=== PATIENT | female | born 1995 | race Caucasian/White ===

== ENCOUNTER 2020-01-12 11:14 | Emergency (ER) | payer SELFPAY ==
[2020-01-12 11:19] VITALS: BMI 39.1
[2020-01-12 11:22] VITALS: BP 137/94; PULSE 66; RESP 16; TEMP 36.9; O2SAT 98
--- NOTE | 2020-01-12 11:24 | CTR_ITS ---
PROCEDURE INFORMATION: Exam: CT Head Without Contrast Exam date and time: 01/12/2020 11:46 AM Age: 24 years old Clinical indication: Patient HX: C/O dizziness - weakness - nausea x 2 weeks TECHNIQUE: Imaging protocol: Computed tomography of the head without contrast. Radiation optimization: All CT scans at this facility use at least one of these dose optimization techniques: automated exposure control; mA and/or kV adjustment per patient size (includes targeted exams where dose is matched to clinical indication); or iterative reconstruction. COMPARISON: No relevant prior studies available. RADIATION DOSE METRICS: Total DLP: 762.65 mGy-cm FINDINGS: Brain: Symmetric caliber of the cortical sulci. Normal swann-white matter differentiation. No acute cortical infarct, mass effect, or intracranial hemorrhage. Ventricles: Normal configuration of the ventricles. Bones/joints: No acute calvarial pathology. Sinuses: Opacification of a solitary left ethmoidal air cell. Mastoid air cells: No mastoid effusion. Soft tissues: Unremarkable soft tissues. CT/CT head wo con* [id number] IMPRESSION: No acute intracranial pathology. Radiation Dose CTDIVOL = (mGy): DLP = 762.65 (mGy-cm)
--- NOTE | 2020-01-12 11:26 | ED_ITS ---
HPI - Dizziness General: Chief Complaint: Dizziness Stated Complaint: dizzy/weak Time Seen by Provider: 01/12/20 11:20 History of Present Illness: HPI Narrative: Patient states that she has felt dizzy for the past 2 weeks. Exertion makes this worse. MD elicited complaint: dizziness and vertigo Timing: intermittent Severity: severe Description: room spinning , lightheadedness, off-balance and difficulty walking Review of Systems General: Reports: 10 or more systems reviewed and unremarkable except in HPI and below PFSH ED PFSH: Social History Smoking and tobacco status: never smoked Female Reproductive History: Date of last menstrual period: 01/03/20 Physical Exam Const: COMMON NORMALS: no acute distress, patient oriented x3, alert and well nourished HENMT: COMMON NORMALS: normocephalic HEAD & SCALP: normocephalic Neck/C-Spine: COMMON NORMALS: full ROM, no lymphadenopathy, supple, no meningeal signs, no JVD and Thyroid normal THYROID: Thyroid normal Resp: COMMON NORMALS: normal respiratory effort, No retractions, No use of accessory muscles and clear to auscultation bilaterally AUSCULTATION: clear to auscultation bilaterally Cardio: COMMON NORMALS: no JVD, regular rate and regular rhythm JUGULAR VENOUS DISTENTION: no JVD RATE: regular rate RHYTHM: regular rhythm HEART SOUNDS: no murmurs Neuro: COMMON NORMALS: patient oriented x3 SENSORIUM/ORIENTATION: Yes alert MENINGEAL SIGNS: Yes no meningeal signs Skin: COMMON NORMALS: no rashes or lesions noted, turgor normal, no jaundice, no petechiae and no mottling GENERAL SKIN EXAM: no rashes or lesions noted and turgor normal Course Vital Signs: Vital signs: Vital Signs Temperature 98.4 F 01/12/20 11:22 Pulse Rate 66 01/12/20 11:22 Respiratory Rate 16 01/12/20 11:22 Blood Pressure 137/94 01/12/20 11:22 Pulse Oximetry 98 01/12/20 11:22 MDM - Dizziness Lab Data: Labs: Lab Results 01/12/20 01/12/20 01/12/20 Range/Units 11:45 11:57 11:57 WBC 12.4 H (4.0-10.0) 10^3/ uL RBC 4.57 (4.1-5.3) 10^6/u L Hgb 12.4 (11.5-15.3) g/dL Hct 40.4 (37.0-47.0) % MCV 88.4 (81-99) fL MCH 27.1 L (28.0-34.0) pg MCHC 30.7 (30.0-36.0) g/dL RDW 13.2 (12.1-15.1) % Plt Count 376 (130-400) 10^3/c mm MPV 10.2 (7.4-10.4) fL Neut % (Auto) 63.0 % Lymph % (Auto) 27.8 % [place] % (Auto) 7.3 % Eos % (Auto) 1.3 % Baso % (Auto) 0.4 % Neut # (Auto) 7.8 H (1.8-7.7) 10^3/u L Lymph # (Auto) 3.4 (0.8-4.8) 10^3/u L [place] # (Auto) 0.9 (0.2-0.9) 10^3/u L Eos # (Auto) 0.2 (0.0-0.8) 10^3/u L Baso # (Auto) 0.1 (0.0-0.1) 10^3/u L Nucleated RBC % (a uto) 0 % Nucleated RBCs # 0.0 /100WBC Sodium 141 (136-145) mmol/L Potassium 4.5 (3.5-5.1) mmol/L Chloride 104 (98-107) mmol/L Carbon Dioxide 26 (22-29) mmol/L Anion Gap 15.5 (5-19) BUN 11 (6-20) mg/dL Creatinine 0.7 (0.5-0.9) mg/dL GFR Calculation 104.6 (90-130) mL/min Glucose 98 (65-115) mg/dL Calculated Osmolal ity 288 (285-295) mOsm/k g Calcium 9.1 (8.5-10.5) mg/dL Phosphorus 3.6 (2.5-4.5) mg/dL Magnesium 2.1 (1.7-2.3) mg/dL Total Bilirubin 0.2 (0.15-1.2) mg/dL AST 18 (0-32) U/L ALT 16 (0-33) U/L Alkaline Phosphata se 66 (35-105) IU/L Total Protein 7.3 (6.6-8.7) g/dL Albumin 4.3 (3.5-5.2) g/dL Globulin 3.0 (1.3-4.6) g/dL HCG, Qual (Negative) Urine Color Yellow (Yellow) Urine Appearance Clear (CLEAR) Urine pH 5 (5-7) Ur Specific Gravit y 1.005 (1.005-1.030) Urine Protein Neg (Negative) Urine Glucose (UA) Norm (Normal) Urine Ketones Negative (Negative) Urine Blood Neg (Negative) Urine Nitrate Negative (Negative) Urine Bilirubin Neg (NEGATIVE) Urine Urobilinogen Norm (Negative) mg/dL Ur Leukocyte [place] ase Negative (Negative) 01/12/20 Range/Units 11:57 WBC (4.0-10.0) 10^3/ uL RBC (4.1-5.3) 10^6/u L Hgb (11.5-15.3) g/dL Hct (37.0-47.0) % MCV (81-99) fL MCH (28.0-34.0) pg MCHC (30.0-36.0) g/dL RDW (12.1-15.1) % Plt Count (130-400) 10^3/c mm MPV (7.4-10.4) fL Neut % (Auto) % Lymph % (Auto) % [place] % (Auto) % Eos % (Auto) % Baso % (Auto) % Neut # (Auto) (1.8-7.7) 10^3/u L Lymph # (Auto) (0.8-4.8) 10^3/u L [place] # (Auto) (0.2-0.9) 10^3/u L Eos # (Auto) (0.0-0.8) 10^3/u L Baso # (Auto) (0.0-0.1) 10^3/u L Nucleated RBC % (a uto) % Nucleated RBCs # /100WBC Sodium (136-145) mmol/L Potassium (3.5-5.1) mmol/L Chloride (98-107) mmol/L Carbon Dioxide (22-29) mmol/L Anion Gap (5-19) BUN (6-20) mg/dL Creatinine (0.5-0.9) mg/dL GFR Calculation (90-130) mL/min Glucose (65-115) mg/dL Calculated Osmolal ity (285-295) mOsm/k g Calcium (8.5-10.5) mg/dL Phosphorus (2.5-4.5) mg/dL Magnesium (1.7-2.3) mg/dL Total Bilirubin (0.15-1.2) mg/dL AST (0-32) U/L ALT (0-33) U/L Alkaline Phosphata se (35-105) IU/L Total Protein (6.6-8.7) g/dL Albumin (3.5-5.2) g/dL Globulin (1.3-4.6) g/dL HCG, Qual Negative (Negative) Urine Color (Yellow) Urine Appearance (CLEAR) Urine pH (5-7) Ur Specific Gravit y (1.005-1.030) Urine Protein (Negative) Urine Glucose (UA) (Normal) Urine Ketones (Negative) Urine Blood (Negative) Urine Nitrate (Negative) Urine Bilirubin (NEGATIVE) Urine Urobilinogen (Negative) mg/dL Ur Leukocyte [place] ase (Negative) Discharge Plan Discharge Patient Disposition: Home, Self-Care Clinical Impression: Dizziness Benign paroxysmal positional vertigo Qualifiers: Laterality: unspecified laterality Qualified Code(s): H81.10 - Benign paroxysmal vertigo, unspecified ear Condition: Stable Prescriptions: No Action No Known Home Medications RF: 0 Discharge Orders: Discharge Order (Routine); Ordered 01/12/20 Ordered By: Colt Patel Coding Level of Care Code ED Corporate Relations Manager for Chg Fwd Exam Detailed
[2020-01-12 12:03] LABS: Basophils # 0.1 10^3/uL (0.0-0.1); Basophils % 0.4 %; Eosinophils # 0.2 10^3/uL (0.0-0.8); Eosinophils % 1.3 %; Hematocrit 40.4 % (37.0-47.0); Hemoglobin 12.4 g/dL (11.5-15.3); Lymphocytes # 3.4 10^3/uL (0.8-4.8); Lymphocytes % 27.8 %; Mean Corpuscular HGB Conc 30.7 g/dL (30.0-36.0); Mean Corpuscular Hemoglobin 27.1 pg (28.0-34.0); Mean Corpuscular Volume 88.4 fL (81-99); Mean Platelet Volume 10.2 fL (7.4-10.4); Monocytes # 0.9 10^3/uL (0.2-0.9); Monocytes % 7.3 %; Neutrophils # 7.8 10^3/uL (1.8-7.7); Nucleated Red Blood Cells % 0 %; Platelet Count 376 10^3/cmm (130-400); Red Blood Count 4.57 10^6/uL (4.1-5.3); Red Cell Distribution Width 13.2 % (12.1-15.1); White Blood Count 12.4 10^3/uL (4.0-10.0)
[2020-01-12 12:07] LABS: Add Urine Microscopic? NO
[2020-01-12 12:10] LABS: Bilirubin Urine Neg (NEGATIVE); Blood Urine Neg (Negative); Glucose Urine UA Norm (Normal); Ketones Urine Negative (Negative); Leukocyte Esterase Urine Negative (Negative); Nitrate Urine Negative (Negative); Protein Urine Neg (Negative); Specific Gravity, Urine 1.005 (1.005-1.030); Urine Appearance Clear (CLEAR); Urine Color Yellow (Yellow); Urobilinogen Urine Norm (Negative); pH Urine 5 (5-7)
[2020-01-12 12:17] LABS: Alanine Aminotransferase 16 U/L (0-33); Albumin Level 4.3 g/dL (3.5-5.2); Alkaline Phosphatase 66 IU/L (35-105); Anion Gap 15.5 (5-19); Aspartate Amino Transferase 18 U/L (0-32); Blood Urea Nitrogen 11 mg/dL (6-20); Calcium 9.1 mg/dL (8.5-10.5); Carbon Dioxide 26 mmol/L (22-29); Chloride 104 mmol/L (98-107); Glomerular Filtration Rate 104.6 mL/min (90-130); Glucose 98 mg/dL (65-115); Magnesium 2.1 mg/dL (1.7-2.3); Osmolality Calculated 288 mOsm/kg (285-295); Phosphorus 3.6 mg/dL (2.5-4.5); Potassium 4.5 mmol/L (3.5-5.1); Sodium 141 mmol/L (136-145); Total Bilirubin 0.2 mg/dL (0.15-1.2); Total Protein 7.3 g/dL (6.6-8.7)
[2020-01-12] MEDS: sodium chloride 0.9% 1,000 ML 999 ML IV (12:33)
[2020-01-12 12:50] LABS: HCG, Serum Qual Negative (Negative)
[2020-01-12 13:03] VITALS: BP 125/88; PULSE 70; RESP 15; O2SAT 98
== END 2020-01-12 13:04 | disposition home or self-care (01) ==
PROVIDERS: Emergency Provider Family Medicine
DX: H81.10 Benign paroxysmal vertigo, unspecified ear (principal)
CPT/HCPCS: 12345; 36415; 70450; 80053; 81003; 83735; 84100; 84703; 85025; 96360; 99282; 99283; J7030

== ENCOUNTER → 2020-12-29 12:58 | Outpatient (BNVA) | payer MEDICAID, SELFPAY | PROVIDERS: Visit Provider Obstetrics & Gynecology | DX: Z34.03 Encounter for supervision of normal first pregnancy, third trimester (principal) | CPT/HCPCS: 81000; 82950; 85027; 86803 ==

== ENCOUNTER → 2021-01-12 14:08 | Outpatient (BNVA) | payer MEDICAID, SELFPAY | PROVIDERS: Visit Provider Obstetrics & Gynecology | DX: Z34.03 Encounter for supervision of normal first pregnancy, third trimester (principal) | CPT/HCPCS: 81000 ==

== ENCOUNTER → 2021-02-02 11:29 | Outpatient (BNVA) | payer MEDICAID, SELFPAY | PROVIDERS: Visit Provider Nurse Practitioner Women's Health | DX: O99.013 Anemia complicating pregnancy, third trimester (principal); D64.9 Anemia, unspecified; Z3A.00 Weeks of gestation of pregnancy not specified | CPT/HCPCS: 81000 ==

== ENCOUNTER → 2021-02-11 13:12 | Outpatient (BNVA) | payer MEDICAID, SELFPAY | PROVIDERS: Visit Provider Nurse Practitioner Women's Health | DX: O99.013 Anemia complicating pregnancy, third trimester; D64.9 Anemia, unspecified; Z3A.00 Weeks of gestation of pregnancy not specified | CPT/HCPCS: 81000; 85025; 87081 ==

== ENCOUNTER → 2021-02-16 09:12 | Outpatient (BNVA) | payer MEDICAID, SELFPAY | PROVIDERS: Visit Provider Obstetrics & Gynecology | DX: Z34.03 Encounter for supervision of normal first pregnancy, third trimester (principal) | CPT/HCPCS: 81000 ==

== ENCOUNTER 2021-02-19 14:35 | Outpatient (CLI) | payer MEDICAID, SELFPAY ==
[2021-02-19 14:49] VITALS: BP 112/59; PULSE 88; RESP 18
[2021-02-19 14:51] VITALS: TEMP 36.7
[2021-02-19 15:00] VITALS: RESP 16; TEMP 36.7
[2021-02-19 15:19] VITALS: BP 114/62; PULSE 75
[2021-02-19 15:47] LABS: Nitrazine Paper, PH Negative
[2021-02-19 15:49] VITALS: BP 101/58; PULSE 77
[2021-02-19 16:00] LABS: Actim Prom Negative
[2021-02-19 16:08] VITALS: BP 101/58; PULSE 77; RESP 18; TEMP 36.7
== END 2021-02-19 16:10 | disposition home or self-care (01) ==
LOC: OPOB 14:36 → OBGYN 14:38
PROVIDERS: Visit Provider Obstetrics & Gynecology
DX: O26.899 Other specified pregnancy related conditions, unspecified trimester (principal); Z3A.00 Weeks of gestation of pregnancy not specified; N89.8 Other specified noninflammatory disorders of vagina
CPT/HCPCS: 83986; 84112; 99211

== ENCOUNTER 2021-02-22 00:39 | Emergency (ER) | payer MEDICAID, SELFPAY ==
[2021-02-22 01:05] VITALS: BP 110/69; PULSE 74; RESP 16; TEMP 36.8; O2SAT 98; BMI 38.7
--- NOTE | 2021-02-22 01:49 | W.ED.SKABFB ---
HPI - Skin/Abscess/Foreign Bdy General: Chief complaint: Skin/Abscess/Foreign Body Stated complaint: Spider Bite Time Seen by Provider: 02/22/21 01:18 Source: patient Mode of arrival: ambulatory Limitations: no limitations History of Present Illness: HPI narrative: Patient is a 25-year-old female at approximately 38 weeks here for a red lesion that she noticed to her right forearm when she awoke this morning. She states lesion is pruritic. She did not feel any bite or sting. She has no history of MRSA. She has not noticed any red streaking up her arm. No fevers, chills, body aches. No drainage from the wound. MD complaint: insect bite/sting Onset (ago): hour(s) Tetanus up to date: yes Location: RUE Severity: mild Quality: pruritic Pain Consistency: constant Relieving factors: none Exacerbating factors: none Context: none Associated symptoms: Reports no associated symptoms; Deny chills or fever(s) Treatments prior to arrival: none Review of Systems Const: Denies: fever(s), chills, body aches, fatigue or malaise Skin/Breast: Reports: new lesions Neuro: Denies: numbness in extremities or sensory changes PFSH ED PFSH: Medical History No pertinent past medical history neghx: htn,dm,thyroid.dvt/pe PCP: none Surgical History No history of previous surgery Family History Grandmother Diabetes maternal great Breast cancer maternal great, age onset unknown Denies family history of Colon cancer Ovarian cancer Clotting disorder Heart disease Hyperlipidemia Anesthesia complication Bleeding disorder Hypertension Uterine cancer Thyroid condition Stroke Social History (Updated 02/16/21 @ 09:16 by Mary Reyna RN) Smoking and tobacco status: never smoked Alcohol intake: former Former alcohol use details: prior to Female Reproductive History: Date of last menstrual period: 06/10/20 Physical Exam Const: COMMON NORMALS: no acute distress, patient oriented x3, no limitations and alert GENERAL APPEARANCE: cooperative Extremity: EXTREMITY IMAGE (FRONT): 1. 2 inch circular area of erythema/warmth with central mild induration; no central necrosis/hemorrhage; no fluctuance or drainage; no lymphangitic streaking Neuro: COMMON NORMALS: patient oriented x3 SENSORIUM/ORIENTATION: Yes alert Course Vital Signs: Vital signs: Vital Signs Temperature 98.2 F 02/22/21 01:05 Pulse Rate 74 02/22/21 01:05 Respiratory Rate 16 02/22/21 01:05 Blood Pressure 110/69 02/22/21 01:05 Pulse Oximetry 98 02/22/21 01:05 MDM - Skin/Abscess/Foreign Bdy MDM Narrative: Medical decision making narrative: Lesion at this point look suspicious for insect/spider bite. Explained how most of these are self-limited and do not progress to skin necrosis. Recommend conservative management this time. Vital signs are stable. Will go ahead and write prescription for antibiotics that she can fill only if lesion progressively worsens. She has appointment with OB on Monday. Discharge Plan Discharge Patient Disposition: Home Clinical Impression: Insect bite of right forearm Qualifiers: Encounter type: initial encounter Qualified Code(s): S50.861A - Insect bite (nonvenomous) of right forearm, initial encounter Condition: Stable Prescriptions: New Augmentin 875-125 mg tablet 1 tab PO Q12H 7 Days Qty: 14 RF: 0 No Action prenat.vits,stacy,ajc-mlci-yealo Tablet 1 tab PO DAILY RF: 0 ferrous sulfate 325 mg (65 mg iron) tablet 325 mg PO BID 30 Days Qty: 60 RF: 3 Discharge Orders: Discharge ED (Routine); Ordered 02/22/21 Ordered By: Haylee Haney Patient Instructions: Insect Bites and Stings, Insect Bite or Sting (ED) Activity Restrictions/Additional Instructions: As we discussed at this point I would watch lesion closely and monitor for worsening redness, pain, or drainage. Most insect bite/spider bites do not form abscesses or cause skin necrosis. These bites are generally not bacterial in nature. Most bites are self-limiting meaning they will heal and go away on their own. If area continues to worsen you may fill antibiotics. You may need to seek medical reevaluation if lesion progressively worsens. Coding Level of Care Code ED Hospice Consultant for Jeana Lane
== END 2021-02-22 02:12 | disposition home or self-care (01) ==
PROVIDERS: Emergency Provider Physician Assistant
DX: O9A.213 Injury, poisoning and certain other consequences of external causes complicating pregnancy, third trimester (principal); S50.861A Insect bite (nonvenomous) of right forearm, initial encounter; Z3A.38 38 weeks gestation of pregnancy; W57.XXXA Bitten or stung by nonvenomous insect and other nonvenomous arthropods, initial encounter
CPT/HCPCS: 99282

== ENCOUNTER → 2021-03-09 09:06 | Outpatient (BNVA) | payer MEDICAID, SELFPAY | PROVIDERS: Visit Provider Obstetrics & Gynecology | DX: O99.013 Anemia complicating pregnancy, third trimester (principal); Z20.822 Contact with and (suspected) exposure to COVID-19 | CPT/HCPCS: 81000; 87635 ==

== ENCOUNTER 2021-03-11 18:22 | Inpatient (IN) | payer MEDICAID, SELFPAY ==
[2021-03-11] VITALS (35 sets, daily range): BP systolic 93–126; BP diastolic 48–72; PULSE 88–117; RESP 16–18; TEMP 36.3–37.4; O2SAT 98–100; BMI 38.7
[2021-03-11] MEDS: miSOPROStol 100 mcg tablet 25 MCG VAGINAL ×2 (17:54→22:35)
[2021-03-11 18:13] LABS: Basophils % 0.3 %; Eosinophils # 0.1 10^3/uL (0.0-0.8); Eosinophils % 1.2 %; Hematocrit 34.6 % (37.0-47.0); Hemoglobin 10.8 g/dL (11.5-15.3); Lymphocytes # 1.3 10^3/uL (0.8-4.8); Lymphocytes % 12.8 %; Mean Corpuscular HGB Conc 31.2 g/dL (30.0-36.0); Mean Corpuscular Hemoglobin 26.9 pg (28.0-34.0); Mean Corpuscular Volume 86.3 fL (81-99); Mean Platelet Volume 11.3 fL (7.4-10.4); Monocytes # 0.5 10^3/uL (0.2-0.9); Monocytes % 4.5 %; Neutrophils # 8.42 10^3/uL (1.8-7.7); Neutrophils % 80.7 %; Nucleated Red Blood Cells % 0 %; Platelet Count 339 10^3/cmm (130-400); Red Blood Count 4.01 10^6/uL (4.1-5.3); Red Cell Distribution Width 16.8 % (12.1-15.1); White Blood Count 10.4 10^3/uL (4.0-10.0)
[2021-03-11] MEDS: lactated ringers 1,000 ML 999 ML (20:17)
[2021-03-11] MEDS: dextrose 5%-lactated ringers 1,000 ML 125 ML IV (21:33)
--- NOTE | 2021-03-11 21:46 | PM.OPHPUD ---
Labor & Delivery H&P Update Date of Procedure: March 12, 2021 Date H&P Performed: 03/09/21 H&P update information: I have reviewed H&P completed within last 30 days and I have examined patient prior to procedure Admission Diagnosis:
[2021-03-11] MEDS: morphine 4 mg/mL SDV 1 mL 8 MG IM (23:48)
[2021-03-11] MEDS: promethazine 25 mg/mL SDV 1 mL IM (23:50)
[2021-03-12] VITALS (119 sets, daily range): BP systolic 81–131; BP diastolic 40–81; PULSE 76–206; RESP 15–20; TEMP 36.6–38.4; O2SAT 99–100
[2021-03-12] MEDS: lactated ringers 1,000 ML 999 ML IV ×4 (00:50→22:28)
[2021-03-12] MEDS: dextrose 5%-lactated ringers 1,000 ML 125 ML IV ×4 (01:51→22:03)
[2021-03-12] MEDS: oxytocin 30 UNIT/500 ML BAG IV (09:35)
[2021-03-12] MEDS: fentaNYL 50 mcg/mL INJ 2mL IVP (11:12)
--- NOTE | 2021-03-12 12:49 | PM.PN ---
Subjective Subjective: Interval history: Ms. Glover is a 25 y/o with an LMP of 06/10/2020 and an EDC of 03/09/2021 based on first trimester ultrasound which places her at 40 2/7 weeks gestation. Admitted for elective labor induction. Vitals/I&O/Wt Last Vital Signs Temp 98.6 F 03/12/21 09:38 Pulse 94 03/12/21 12:44 Resp 20 H 03/12/21 11:12 BP 121/64 03/12/21 12:44 Pulse Ox 100 03/12/21 12:43 03/11/21 03/12/21 03/12/21 22:59 06:59 14:59 Intake Total 1000 / 1000 2000.000 / 3000.000 2064.250 / 2063.250 Balance 1000 / 1000 2000.000 / 3000.000 2064.250 / 2063.250 Weight last 48 hrs Weight 102.512 kg Physical Exam Narrative: EXAM NARRATIVE: GA: Alert and oriented ?3. Lungs: Clear to auscultation bilaterally. Heart: Regular rhythm and rate. Abdomen: Gravid, full the height equals dates, nontender. COMMERCIAL LINES ASSISTANT: SVE; dilation: 5 cm, effacement: 80%, station: -3, presentation: vx, membranes: im. Extremities: no edema, no cyanosis, no calves pain. heart tracing: Basal rate: 140's bpm, Variability: Moderate, Accelerations: Present, Decelerations: Absent, Contraction: q3min. Data : 03/11/21 17:45 A&P Assessment and plan (1) Term : Mrs. Glover admitted for elective induction full-term. heart tracing category 1. Progressing accordingly. Epidural ordered Anticipate vaginal delivery. Status: Acute (2) Anemia affecting in third trimester: Status: Acute Attestations Medical Necessity Statement*: In my professional opinion per admitting diagnosis Coding Level of Care Code Acute Printing Pressman for g Fwd Diagnoses Term Z34.90 Anemia affecting in third trimester O99.013
--- NOTE | 2021-03-12 13:08 | P.ANESASSM_ITS ---
Pre-Anesthetic Assessment Pre-Anesthetic Assessment: Height/Weight: Height 1.63 m Weight 102.512 kg Temp Pulse Resp BP Pulse Ox 98.6 F 96 20 H 99/52 99 03/12/21 09:38 03/12/21 13:05 03/12/21 11:12 03/12/21 13:05 03/12/21 13:03 Was Beta Alona taken within 24 hours: N/A Was Clonidine taken within 24 hours: N/A Social: Social History: No alcohol and No tobacco Exam: Pre-Anes Outpt Exam: alert, oriented x 3, clear to auscultation bilaterally and regular rate & rhythm Airway: Submandibular: WNL Cervical ROM: WNL MP: 2 Dentition: Full History/ROS: No significant history except as noted Anesthetic Plan: ASA status: 2 Anesthesia: Regional (specify below) (labor epidural) Risk of > 500 ml blood loss (7ml/kg in children): No Meds/Allergies Current Medications: Current Medications Generic Name Dose Route Start Last Admin Trade Name Freq PRN Reason Stop Dose Admin Fentanyl 25 - 100 mcg 03/11/21 17:25 03/12/21 11:12 Fentanyl 50 Mcg/ Ml Inj 2ml IVP 25 mcg Q1H PRN Administration SEVERE PAIN Dextrose/Lactated Ringer's 1,000 mls @ 125 m ls/hr 03/11/21 17:25 03/12/21 10:46 Dextrose 5%-Lact ated Ringers IV 125 mls/hr .Q8H PRN Infusion per label comment s Lactated Ringer's 1,000 mls @ 999 m ls/hr 03/12/21 00:42 03/12/21 12:18 Lactated Ringers IV 999 mls/hr .Q1H1M PRN Administration BLEEDING Lactated Ringer's 1,000 mls @ 999 m ls/hr 03/12/21 00:42 03/12/21 01:51 Lactated Ringers IV Infused .Q1H1M PRN Infusion Per L&D Rescitati on Protocol Oxytocin 30 unit in 500 ml s @ 1 mls/hr 03/12/21 09:15 03/12/21 10:46 Pitocin IV 3 milliunit/min .Q24H HAILEE 3 mls/hr Titration Protocol 1 MILLIUNIT/MIN Ropivacaine 200 mg in 100 mls @ 13 mls/hr 03/12/21 11:15 03/12/21 12:52 Naropin Premix EPIDURAL 13 mls/hr .Q7H42M HAILEE Administration Lactated Ringer's 1,000 mls @ 999 m ls/hr 03/12/21 11:11 03/12/21 12:18 Lactated Ringers IV Infused .Q1H1M PRN Infusion See label comment s PFSH Anesthesia PFSH: Medical History No pertinent past medical history neghx: htn,dm,thyroid.dvt/pe PCP: none Surgical History No history of previous surgery Family History Grandmother Diabetes maternal great Breast cancer maternal great, age onset unknown Denies family history of Colon cancer Ovarian cancer Clotting disorder Heart disease Hyperlipidemia Anesthesia complication Bleeding disorder Hypertension Uterine cancer Thyroid condition Stroke Social History (Updated 03/09/21 @ 09:13 by Mary Reyna, RN) Smoking and tobacco status: never smoked Alcohol intake: former Former alcohol use details: prior to Female Reproductive History: Date of last menstrual period: 06/10/20 : 1 Data Anesthesia CBC & Chem 7: 03/11/21 17:45 Other Labs: Laboratory Results - last 48 hr 03/11/21 17:45 WBC 10.4 H RBC 4.01 L Hgb 10.8 L Hct 34.6 L MCV 86.3 MCH 26.9 L MCHC 31.2 RDW 16.8 H Plt Count 339 MPV 11.3 H Neut % (Auto) 80.7 Lymph % (Auto) 12.8 [place] % (Auto) 4.5 Eos % (Auto) 1.2 Baso % (Auto) 0.3 Neut # (Auto) 8.42 H Lymph # (Auto) 1.3 [place] # (Auto) 0.5 Eos # (Auto) 0.1 Baso # (Auto) 0.0 Nucleated RBC % (auto) 0 Nucleated RBCs # 0.0 Cardiac Studies: No Data to Display
--- NOTE | 2021-03-12 13:08 | ANES.PROC ---
Anesthesia Procedures Procedure/Date: 03/12/21 Epidural: Consents Signed: Procedure Consent Consent: requested by attending/covering physician, from patient, risks and benefits reviewed and patient agrees to proceed Lumbar Level: L3-L4 Epidural position: sitting Epidural procedure: sterile prep of area, 1% lidocaine to numb the area, 18 g needle, neg for paresthesia, test dose given, 1.5% xylocaine 1:200k epi, placed PCEA, no systemic response, sterile dressing applied and 0.2% Ropiavacaine @ mls/hr (13) Additional Comments: MAHESH at 6cm, cath at 11cm.
[2021-03-12] MEDS: ondansetron 2 mg/ML SDV 2 mL 4 MG IVP (22:31)
[2021-03-13] VITALS (23 sets, daily range): BP systolic 89–129; BP diastolic 50–72; PULSE 65–103; RESP 18; TEMP 35.7–37.1
[2021-03-13] MEDS: acetaminophen 325 mg Tablet 650 MG PO (00:14)
--- NOTE | 2021-03-13 02:32 | P.PCNOB_ITS ---
Delivery Note: Date of delivery: March 13, 2021 Pre-delivery diagnoses: Term Post-delivery diagnoses: Term delivered Procedure: Spontaneous vaginal delivery Op report anesthesia: Epidural Delivering Physician: Chris Zuñiga MD Estimated blood loss (mL): 500 Findings: Male , weight 3290 Apgars 8/ 9 Pre-Delivery Course: Ms. Glover is a 25 y/o with an LMP of 06/10/2020 and an EDC of 03/09/2021 based on first trimester ultrasound which places her at 40 2/7 weeks gestation. CC: Elective induction. HPI: Received appropriate care. Daily vitamins since start of care. labs have all been normal, including negative for HIV. She was found to negative for Group B Strep from screening at 36 weeks. She has gained approximately 1.9 lbs throughout the . She denies a history of HTN during . Glucose tolerance screening for gestational diabetes was negative. Delivery: The patient was noted to be complete and pushing, so was placed in the dorsal lithotomy position, prepped and draped in the usual sterile fashion for a vaginal delivery. Pt. Noted to have epidural anesthesia. At 0212 the patient delivered a viable full-term male infant weighing 3290 g with scores of 8 and 9 at one and five minutes, respectively. The vertex was delivered spontaneously over an intact perineum. The patient was asked to push and the head delivered spontaneously in the DARRON position, over an intact perineum. A nuchal cord was checked and none noted. The anterior shoulder delivered easily and the posterior shoulder followed. The remainder of the infant was easily delivered and the oropharynx and nasopharynx was bulb suctioned. The was noted to have spontaneous cry and spontaneous movement of all four extremities. The cord was clamped x 2 and cut and noted to have 2 arteries and one vein. The was passed to the mother's abdomen where nursing personnel were in attendance. The placenta delivered intact spontaneously and the uterus was explored. 20 units of Pitocin was placed in the IV bag to firm the uterus. Examination of the cervix and vaginal vault did not reveal any lacerations. A vaginal pack was then placed. Examination of the perineum showed first-degree laceration. The laceration repair did not required repair. The vaginal pack was then removed. The patient tolerated this procedure well, and recovered in L&D with her in their LDR room. All sponge and needle counts were correct. A&P Assessment and plan (1) Anemia affecting in third trimester: Status: Acute (2) Term delivered: Status: Acute Coding Level of Care Code Acute Physician Office Clin Asst for Chg Fwd Diagnoses Anemia affecting in third trimester O99.013 Term delivered O80
[2021-03-13] MEDS: benzocaine-menthol 78 gm Canister 1 SPRAY TOPICAL (03:14)
[2021-03-13] MEDS: lanolin oint 7 gm 1 APPLIC TOPICAL (03:14)
[2021-03-13] MEDS: HYDROcodone-acetaminophen 5-325 mg Tablet PO (03:14)
--- NOTE | 2021-03-13 08:01 | ANE.PACU2 ---
Inpatient post-anesthesia follow up: Airway intact: Yes Vital signs: Temperature 98.8 F Pulse Rate 83 Respiratory Rate 18 Blood Pressure 107/58 Pulse Oximetry 99 Oxygen Delivery Me thod Non-Rebreather Oxygen Flow Rate Fraction of Inspir ed Oxygen Hydration adequate: Yes Nausea and vomiting: No Pain level: 2 Mental status: Baseline
[2021-03-13] MEDS: ibuprofen 800 mg tablet PO ×3 (08:36→21:21)
[2021-03-13] MEDS: docusate sodium 100 mg Capsule PO ×2 (08:36→17:26)
[2021-03-13] MEDS: prenatal vitamin Capsule 1 CAP PO (08:36)
[2021-03-13 17:43] LABS: Hematocrit 27.6 % (37.0-47.0); Hemoglobin 8.8 g/dL (11.5-15.3); Mean Corpuscular HGB Conc 31.9 g/dL (30.0-36.0); Mean Corpuscular Hemoglobin 27.4 pg (28.0-34.0); Mean Platelet Volume 11.4 fL (7.4-10.4); Platelet Count 214 10^3/cmm (130-400); Red Blood Count 3.21 10^6/uL (4.1-5.3); Red Cell Distribution Width 16.9 % (12.1-15.1)
[2021-03-14 04:00] VITALS: BP 104/68; PULSE 75; RESP 18; TEMP 36.4
[2021-03-14] MEDS: prenatal vitamin Capsule 1 CAP PO (08:57)
[2021-03-14] MEDS: ibuprofen 800 mg tablet PO ×2 (08:57→16:45)
[2021-03-14] MEDS: docusate sodium 100 mg Capsule PO (08:57)
[2021-03-14 09:59] VITALS: BP 110/64; PULSE 93; RESP 18; TEMP 37.2
--- NOTE | 2021-03-14 11:00 | PM.OBGYDC ---
Discharge Providers CHAMBER WORKER Date of Admission: 03/11/21 18:22 Date of Discharge: 03/14/21 Attending Provider at Admission: Chris Zuñiga MD Attending Provider at Discharge: Chris Zuñiga MD Diagnoses at Discharge Discharge Diagnosis (1) Term delivered: Status: Acute (2) Anemia, : Status: Acute (3) Anemia affecting in third trimester: Status: Acute Reason for Visit Reason for Visit: elective induction Hospital Course Hospital Course Ms. Glover is a 25 y/o with an LMP of 06/10/2020 and an EDC of 03/09/2021 based on first trimester ultrasound which places her at 40 2/7 weeks gestation at time of admission for elective induction. CC: Elective induction. HPI: Received appropriate care. Daily vitamins since start of care. labs have all been normal, including negative for HIV. She was found to negative for Group B Strep from screening at 36 weeks. She has gained approximately 1.9 lbs throughout the . She denies a history of HTN during . Glucose tolerance screening for gestational diabetes was negative. She had spontaneous vaginal delivery with epidural anesthesia and delivered a viable full-term male weighing 3290 g with scores of 8 and 9. observation has been uneventful until this morning the patient refer some chills and congested. COVID test ordered. She is afebrile hemodynamically stable. Tolerating diet well. Ambulating without difficulty. Breast-feeding without difficulty. rapid COVID test is positive. Her oxygen saturations have been recorded over 98% and greater on room air. I discussed with her her diagnosis, and the no particular treatment currently is recommended. I encouraged her to hydrate well in her recovery and to return for any recurrence of shortness of breath. She was given an oximeter with instructions to return if she becomes hypoxic with saturations less than 92%. Information Peripartum Data: Infant Delivery Method: Vaginal Physical Exam Narrative: EXAM NARRATIVE: GA; alert and oriented x 3 HEENT: normal Breasts: engorged Nipples - skin intact Lungs; clear to auscultation Heart: regular rhythm, no murmurs. Abd: Appropriately tender. BS+. Uterine fundus below umbilicus. No Fundal Tenderness. Perineum: normal lochia. Extremities: no edema, no cyanosis, no tenderness. Urinary Catheter Management^: Rodgers: Cath Placed During This Visit: yes, but has since been removed by the nurse Reason for Continuing Indwelling Catheter: Decision to DC Catheter Urinary Catheter Date of Insertion: 03/12/21 Urinary Catheter Time of Insertion: 13:14 Date Urinary Catheter Removed: 03/13/21 Time Urinary Catheter Discontinued: 01:30 Discharge Data Data Completed and Pending: Pending at discharge Category Date Time Status COVID [SARS Covid -2 Antigen] Stat Lab 03/14/21 10:05 Uncollected Labs from last 24 hours 03/13/21 16:38 WBC 11.0 H RBC 3.21 L Hgb 8.8 L Hct 27.6 L MCV 86.0 MCH 27.4 L MCHC 31.9 RDW 16.9 H Plt Count 214 MPV 11.4 H Vitals: Last Vital Signs Temp 99.0 F 03/14/21 09:59 Pulse 93 03/14/21 09:59 Resp 18 03/14/21 09:59 BP 110/64 03/14/21 09:59 Pulse Ox 99 03/12/21 13:18 Discharge Plan Discharge Patient Disposition: Home Condition: Stable Prescriptions: New acetaminophen 325 mg capsule 325 mg PO Q4H PRN (Reason: fever or pain) Qty: 60 RF: 0 docusate sodium [Colace] 100 mg capsule 100 mg PO BID Qty: 60 RF: 0 Continued prenat.vits,stacy,jyb-vqjh-pviay Tablet 1 tab PO DAILY RF: 0 ferrous sulfate 325 mg (65 mg iron) tablet 325 mg PO BID 30 Days Qty: 60 RF: 3 Discharge Orders: Discharge Order (Routine); Ordered 03/14/21 Ordered By: Chris Zuñiga Referrals: Chris Zuñiga MD [Physician] - 6 Weeks (Call office to make an appt for 6 weeks [phone]) Discharge Diet: Usual diet Discharge Activity: Increase activity as tolerated Patient Instructions: , and Nipple Soreness (DC), Breast Fullness Versus Breast Engorgement (DC), and Plugged Ducts (DC), and Your Diet (DC), Breast Care for the Breast Feeding Mother (DC), Pre-eclampsia and Eclampsia (DC), OB Discharge Report, OB Food/Drug Interaction Guide, OB Care at Home, Opioid Safety, OB Proud Parent Packet, OB Vaginal Deliveries Activity Restrictions/Additional Instructions: 1. Please call [facility] on next working day to make your appointment in 6 weeks. 2. Please stay home until you come back to the clinic on first post-operative check up. 3. Please follow instructions on your medications CAREFULLY. 4. If you have abdominal incision, do not cover it unless dressing is necessary because of drainage. OK to shower, but avoid bath. Leave steri-strips until they fall off. If they are still on one week after surgery, you may remove them. 5. If you had vaginal surgery or vaginal repair, Dr. Zuñiga may instruct you to take SITZ bath. 6. Yellow, blood tinged odorous vaginal discharge is usually normal after hysterectomy or vaginal surgeries. 7. No sexual intercourse, tampons, or douches until you are completely released from the post-operative care. 8. Avoid constipation by eating right and maybe using some Metamucil or Milk of Magnesia. 9. All prescription refills are given during the working hours. Please do no wait till it runs out. Call the clinic at [phone] before your medication runs out. The clinic will get in touch with your doctor to prescribe medications if necessary. 10. Please remain within 40 mile radius from our hospital because emergencies do happen now and then during the post-operative period. 11. If you have stairs at home, take one step at a time slowly and minimize the number of trips. It helps to stay in one floor for the next few days. No lifting except what you can lift by one hand until you are released from the post-operative care. 12. Driving is discouraged until you are well healed. It may be 3-4 weeks before you feel strong enough to drive. You should be able to turn and look through the rear window without pain and you should be able to push the brake pedal very hard without pain before you drive. No fast rules, but SAFETY should be your primary concern. DO NOT drive if you are on sedating medications such as narcotics. 13. Call the clinic (during working hours) to make urgent appointment or go to the Emergency room, if any of the following occurs: i. Vaginal bleeding becomes heavy, more than a period. ii. Incision becomes red and sore, or drains pus. iii. Your temperature is over 100.4 or you have chill. iv. IV site becomes red and swollen (a little ``knot?? is usually OK) v. Persistent nausea and vomiting vi. Persistent constipation or diarrhea vii. Rash or allergic reaction to medications. Discharge Attestations CHAMBER WORKER Time Spent in Discharge Care*: greater than 30 min Coding Level of Care Code Acute Technology Advisor for Chg Fwd Diagnoses Term delivered O80 Anemia, O90.81 Anemia affecting in third trimester O99.013
[2021-03-14 13:38] LABS: SARS Covid-2 Antigen Positive (Negative)
[2021-03-14 14:00] VITALS: PULSE 96; RESP 18; TEMP 37.2; O2SAT 98
[2021-03-14 14:50] LABS: ABG PCO2 34.1 mmHg (35-45); ABG PH Result 7.46 (7.35-7.45); Arterial Blood Gas Hematocrit 31.8 % (37-47); Base Excess ABG 0.6 mmol/L (-2.0-2.0); Blood Gas Allen Test Pos; Blood Gas Sample Site Radial, right; Blood Gas Sample Type Arterial; HCO3 ABG 24.2 mmol/L (22-26); Oxygen Device ROOM AIR
[2021-03-14 16:44] VITALS: BP 114/71; PULSE 78; RESP 18; TEMP 36.6; O2SAT 97
[2021-03-14 16:49] VITALS: BP 114/71; PULSE 75; RESP 18; TEMP 36.6; O2SAT 97
--- NOTE | 2021-03-14 19:30 | PC.NURSE ---
PT POSITIVE FOR COVID WITH SYMPTOMS MMR NOT GIVEN. DR SYLVESTER AWARE.
== END 2021-03-14 16:55 | disposition home or self-care (01) | DRG 805 ==
LOC: OPOB 18:22 → OBGYN 18:22
PROVIDERS: Admitting Provider Obstetrics & Gynecology; Visit Provider Obstetrics & Gynecology
DX: O98.52 Other viral diseases complicating childbirth (principal); U07.1 COVID-19; Z37.0 Single live birth; O48.0 Post-term pregnancy; Z3A.40 40 weeks gestation of pregnancy; O99.02 Anemia complicating childbirth; D64.9 Anemia, unspecified
CPT/HCPCS: 36415; 36600; 51702; 59025; 59409; 82803; 85025; 85027; 87426; 96372; 96374; 96375; J2270; J2405; J2550; J2795; J3010

== ENCOUNTER 2021-03-19 17:17 | Emergency (ER) | payer MEDICAID, SELFPAY ==
[2021-03-19 18:06] VITALS: BP 125/81; PULSE 101; RESP 16; TEMP 37.7; O2SAT 95; BMI 37.8
--- NOTE | 2021-03-19 18:19 | XRR_ITS ---
PROCEDURE INFORMATION: Exam: XR Chest Exam date and time: 03/19/2021 6:19 PM Age: 25 years old Clinical indication: Cough and dyspnea; Patient HX: Covid + since 03/14/2021, cough, SOB; Additional info: Dyspnea/cough TECHNIQUE: Imaging protocol: XR of the chest. Views: 1 view. COMPARISON: No relevant prior studies available. FINDINGS: Lungs: Bibasilar consolidations. Pleural spaces: Unremarkable. No pleural effusion. No pneumothorax. Heart/Mediastinum: Unremarkable. No cardiomegaly. Bones/joints: Unremarkable. XR/XR chest 1V portable [id number] IMPRESSION: Bibasilar consolidations suspicious for COVID pneumonia.
--- NOTE | 2021-03-19 18:42 | W.ED.COVID ---
HPI - COVID General: Chief Complaint: COVID symptoms Stated Complaint: LOW O2/COVID + Time Seen by Provider: 03/19/21 18:19 Source: patient Mode of arrival: ambulatory Limitations: no limitations Triage information: Has fever, cough or shortness of breath. Exposure to COVID + person last 14 days History of Present Illness: HPI Narrative: 24-year-old female who states she gave 1 week ago and was tested positive for Covid on 17. States she had a fever and slight cough since then. She had some dyspnea. Her oxygen here is 95%. She denies any worsening proving factors. She is in no distress here. Denies any worsening proving factors. COVID 19 common symptoms: positive non-productive cough; negative fever(s), chills, dyspnea, body aches, headache(s), throat pain, nausea, vomiting or diarrhea COVID 19 other sytmptoms: negative chest pain COVID Results: SARS-CoV-2 Antigen (Rapid) Positive (Negative) H 03/14/21 12:50 03/14/21 Nasal/Oral Coronavirus 2019 PCR Not detected 03/09/21 09:53 03/09/21 Review of Systems Const: Denies: fever(s), chills, body aches or change in appetite Eyes: Denies: blurry vision or eye discomfort ENMT: Denies: throat pain or dental pain Card: Denies: chest pain Resp: Reports: non-productive cough; Denies: dyspnea GI: Denies: abdominal pain, nausea, vomiting or diarrhea : Denies: dysuria Musc: Denies: neck pain or back pain Skin/Breast: Denies: rash Neuro: Denies: headache(s) Psych: Denies: depression Charli/Lymph: Denies: easy bruising All/Imm: Denies: urticaria PFSH ED PFSH: Medical History No pertinent past medical history neghx: htn,dm,thyroid.dvt/pe PCP: none Surgical History No history of previous surgery Family History Grandmother Diabetes maternal great Breast cancer maternal great, age onset unknown Denies family history of Colon cancer Ovarian cancer Clotting disorder Heart disease Hyperlipidemia Anesthesia complication Bleeding disorder Hypertension Uterine cancer Thyroid condition Stroke Social History (Updated 03/09/21 @ 09:13 by Mary Reyna RN) Smoking and tobacco status: never smoked Alcohol intake: former Former alcohol use details: prior to Female Reproductive History: Date of last menstrual period: 06/10/20 Physical Exam Const: COMMON NORMALS: no acute distress, patient oriented x3 and healthy appearing HENMT: COMMON NORMALS: normocephalic and atraumatic HEAD & SCALP: normocephalic and atraumatic Eye: COMMON NORMALS: Equal, round and reactive pupils present and EOMs intact bilaterally PUPIL: Yes Equal, round and reactive pupils present Neck/C-Spine: COMMON NORMALS: full ROM and supple Chest: COMMONS NORMALS: normal inspection of the chest and normal palpation of entire chest wall Resp: COMMON NORMALS: normal respiratory effort, No retractions, No use of accessory muscles and clear to auscultation bilaterally AUSCULTATION: clear to auscultation bilaterally Cardio: COMMON NORMALS: regular rate, regular rhythm and No murmurs present (Cardio) RATE: regular rate RHYTHM: regular rhythm GI: COMMON NORMALS: Normal to inspection, nondistended, normoactive bowel sounds present, Soft to palpation, non-tender and no masses PALPATION: Yes Soft to palpation Extremity: COMMON NORMALS: normal to inspection and full ROM Neuro: COMMON NORMALS: patient oriented x3, moves all extremities and no focal motor deficits Psych: COMMON NORMALS: mental status grossly normal, Normal thought process present and cooperative THOUGHT PROCESS: Normal thought process present Skin: COMMON NORMALS: no rashes or lesions noted and no wounds GENERAL SKIN EXAM: no rashes or lesions noted Course Vital Signs: Vital signs: Vital Signs Temperature 99.8 F H 03/19/21 18:06 Pulse Rate 90 03/19/21 19:55 Respiratory Rate 18 03/19/21 19:55 Blood Pressure 138/83 03/19/21 19:55 Pulse Oximetry 96 03/19/21 19:55 MDM - COVID MDM Narrative: Medical decision making narrative: Patient presents with COVID-19 causing her symptoms. She is well-appearing here in no distress. We will place her on an inhaler. She is stable for discharge and to continue monitor oxygen return if worsening. She understands agrees to plan. Imaging Data: CXR: Attestation: I personally reviewed and interpreted this imaging study as follows: My impression: Slight bilateral lower lobe infiltrates consistent with Covid COVID Results: SARS-CoV-2 Antigen (Rapid) Positive (Negative) H 03/14/21 12:50 03/14/21 Nasal/Oral Coronavirus 2019 PCR Not detected 03/09/21 09:53 03/09/21 Discharge Plan Discharge Patient Disposition: Home Clinical Impression: COVID-19 Condition: Stable Prescriptions: New albuterol sulfate 90 mcg/actuation HFA aerosol inhaler 2 inh INHALATION Q6H PRN (Reason: shortness of breath or wheezing) Qty: 8 RF: 0 Medrol (Douglas) 4 mg tablets,dose pack See Rx Instructions .ROUTE .COMPLEX Qty: 21 RF: 0 No Action prenat.vits,stacy,[id number] Tablet 1 tab PO DAILY RF: 0 ferrous sulfate 325 mg (65 mg iron) tablet 325 mg PO BID 30 Days Qty: 60 RF: 3 Colace 100 mg capsule 100 mg PO BID Qty: 60 RF: 0 acetaminophen 325 mg capsule 325 mg PO Q4H PRN (Reason: fever or pain) Qty: 60 RF: 0 Discharge Orders: Discharge ED (Routine); Ordered 03/19/21 Ordered By: Maddie Mars Discharge Diet: Advance as tolerated Discharge Activity: Resume usual activity Patient Instructions: Viral Syndrome (ED) Coding Level of Care Code ED Driver'S License Examiner for [place] Fwd Exam Comprehensive
[2021-03-19] MEDS: acetaminophen 500 mg Tablet 1000 MG PO (19:45)
[2021-03-19 19:53] VITALS: O2SAT 96
[2021-03-19 19:55] VITALS: BP 138/83; PULSE 90; RESP 18; O2SAT 96
== END 2021-03-19 19:55 | disposition home or self-care (01) ==
PROVIDERS: Emergency Provider Emergency Medicine
DX: U07.1 COVID-19 (principal)
CPT/HCPCS: 71045; 99283

== ENCOUNTER 2021-06-29 19:12 | Emergency (ER) | payer BC, MEDICAID, SELFPAY ==
[2021-06-29 19:20] VITALS: BP 120/80; PULSE 74; RESP 16; TEMP 37.1; O2SAT 99; BMI 34.3
[2021-06-29 19:30] VITALS: BP 130/73; RESP 18; O2SAT 100
--- NOTE | 2021-06-29 19:32 | W.ED.FEMALGU ---
HPI - Female Genitourinary General: Chief complaint: Vaginal Bleeding Stated complaint: Possible Miscarriage Time Seen by Provider: 06/29/21 19:32 History of Present Illness: HPI Narrative: Ms Glover is a 25-year-old lady without significant past medical history presents emergency department due to vaginal bleeding with concern for miscarriage. She gave to a healthy baby and estimates that she has had 2 normal periods since that time. She does have a history of irregular periods. She thinks her last one was approximately June 02. This morning she noticed bright red blood per vagina which is slightly less than typical. She has mild associated generalized malaise and has had 2 episodes of lightheadedness. No dizzy/vertiginous component to them. She has not had a positive test. No history of clotting or bleeding disorders. Mild occasional sharp chest discomfort however resolved spontaneously and occurred last night. No other specific changes health, exacerbating, or alleviating factors identified. Date of Last Menstrual Period: 06/10/20 Review of Systems General: Reports: 10 or more systems reviewed and unremarkable except in HPI and below PFSH ED PFSH: Medical History No pertinent past medical history neghx: htn,dm,thyroid.dvt/pe PCP: none Surgical History No history of previous surgery Family History Grandmother Diabetes maternal great Breast cancer maternal great, age onset unknown Denies family history of Colon cancer Ovarian cancer Clotting disorder Heart disease Hyperlipidemia Anesthesia complication Bleeding disorder Hypertension Uterine cancer Thyroid condition Stroke Social History Smoking and tobacco status: never smoked Alcohol intake: former Former alcohol use details: prior to Female Reproductive History: Date of last menstrual period: 06/10/20 Physical Exam Narrative: EXAM NARRATIVE: GENERAL/CONSTITUTIONAL - well-appearing. No acute distress. Eyes -no scleral icterus, no conjunctival injection ENMT - Atraumatic external nose and ears. Dry mucous membranes NECK - supple. trachea midline CARDIOVASCULAR - regular rate and rhythm. RESPIRATORY -clear to auscultation bilaterally. ABDOMEN/GI - Nontender/Nondistended. MSK - Extremities without obvious deformity or tenderness to palpation SKIN - Warm, Dry NEURO - alert and appropriately oriented. No neurologic exam abnormalities appreciated moves all extremities equally. Course ED course: - Patient was seen and evaluated by me at bedside - Patient placed on cardiac monitors, IV access obtained - Initial evaluation notable for no acute distress, nontoxic appearance. -Fluids given - Labs notable for mild leukocytosis. No significant metabolic abnormality to explain patient's symptoms. Urine negative, urinalysis not concerning for urinary tract infection. - Pelvic exam performed with utility plant operative present. Cervical os visualized and closed, there is minimal amount of pooling red blood without evidence of significant blood loss. Negative wet prep - Upon serial reexamination after treatment the patient was similar to mildly improved with fluids - Based on patient history, evaluation, labs, and imaging as interpreted the most likely cause of the patient's condition is abnormal uterine bleeding in the state - The results of ED evaluation were discussed with the patient including prescriptions and/or symptomatic cares (if applicable) including appropriate and responsible use, followup plan, and return precautions. The patient verbalized understanding and felt safe for discharge. - Patient discharged in satisfactory condition. Vital Signs: Vital signs: Vital Signs Temperature 98.8 F 06/29/21 19:20 Pulse Rate 87 06/29/21 21:09 Respiratory Rate 18 06/29/21 21:09 Blood Pressure 123/73 06/29/21 21:09 Pulse Oximetry 100 06/29/21 21:09 MDM - Female Medical Records: Attestation: I reviewed the patient's medical records. Lab Data: Attestation: I reviewed the patient's lab results. Labs: Lab Results 06/29/21 06/29/21 19:49 19:49 WBC 11.7 10^3/uL H 10 ^3/uL (4.0-10.0) RBC 4.42 10^6/uL 10^6 /uL (4.1-5.3) Hgb 11.9 g/dL g/dL (11.5-15.3) Hct 38.0 % % (37.0-47.0) MCV 86.0 fl fl (81-99) MCH 26.9 pg L pg (28.0-34.0) MCHC 31.3 g/dL g/dL (30.0-36.0) RDW 13.2 % % (12.1-15.1) Plt Count 383 10^3/cmm 10^3 /cmm (130-400) MPV 10.4 fL fL (7.4-10.4) Neut % (Auto) 58.0 % % Lymph % (Auto) 30.9 % % [place] % (Auto) 7.4 % % Eos % (Auto) 2.9 % % Baso % (Auto) 0.5 % % Neut # (Auto) 6.76 10^3/uL 10^3 /uL (1.8-7.7) Lymph # (Auto) 3.6 10^3/uL 10^3/ uL (0.8-4.8) [place] # (Auto) 0.9 10^3/uL 10^3/ uL (0.2-0.9) Eos # (Auto) 0.3 10^3/uL 10^3/ uL (0.0-0.8) Baso # (Auto) 0.1 10^3/uL 10^3/ uL (0.0-0.1) Nucleated RBC % (a uto) 0 % % Nucleated RBCs # 0.0 /100WBC /100W BC Sodium 137 mmol/L mmol/L (136-145) Potassium 4.0 mmol/L mmol/L (3.5-5.1) Chloride 103 mmol/L mmol/L (98-107) Carbon Dioxide 24 mmol/L mmol/L (22-29) Anion Gap 14.0 (5-19) BUN 12 mg/dL mg/dL (6-20) Creatinine 0.6 mg/dL mg/dL (0.5-0.9) GFR Calculation 123.9 mL/min mL/m in (90-130) Glucose 94 mg/dL mg/dL (65-115) Calculated Osmolal ity 284 mOsm/kg L mOs m/kg (285-295) Calcium 8.5 mg/dL mg/dL (8.5-10.5) TSH 1.49 uIU/mL uIU/m L (0.27-4.20) Ser , Alyssa i-Qnt 0.50 mIU/mL mIU/m L Discharge Plan Discharge Patient Disposition: Home Clinical Impression: Vaginal bleeding, Irregular periods Condition: Stable Prescriptions: New ondansetron 4 mg tablet,disintegrating 4 mg PO Q8H PRN (Reason: nausea and vomiting) Qty: 14 RF: 0 No Action prenat.vits,stacy,wzv-buja-cvzqx Tablet 1 tab PO DAILY RF: 0 ferrous sulfate 325 mg (65 mg iron) tablet 325 mg PO BID 30 Days Qty: 60 RF: 3 albuterol sulfate 90 mcg/actuation HFA aerosol inhaler 2 inh INHALATION Q6H PRN (Reason: shortness of breath or wheezing) Qty: 8 RF: 0 Medrol (Douglas) 4 mg tablets,dose pack See Rx Instructions .ROUTE .COMPLEX Qty: 21 RF: 0 Colace 100 mg capsule 100 mg PO BID Qty: 60 RF: 0 acetaminophen 325 mg capsule 325 mg PO Q4H PRN (Reason: fever or pain) Qty: 60 RF: 0 Discharge Orders: Discharge ED (Routine); Ordered 06/29/21 Ordered By: Rafa Curry Discharge Diet: Usual diet Discharge Activity: Resume usual activity Patient Instructions: Abnormal (Dysfunctional) Uterine Bleeding (ED) Activity Restrictions/Additional Instructions: Thank you for visiting the emergency department. You were seen and evaluated for vaginal bleeding. The exact cause of your symptoms is unclear though is likely related to irregular periods in the state. Your test was negative and I do not see evidence that you were . Please follow-up with your primary care provider. Please return to the emergency department for anything that you are concerned about and feel needs emergency department evaluation. Coding Level of Care Code ED Electric Meter Technician for Jeana Lane
[2021-06-29 19:43] VITALS: BP 118/66; BP 133/78; BP 134/73; PULSE 74; PULSE 81; PULSE 90
[2021-06-29 19:59] LABS: Basophils # 0.1 10^3/uL (0.0-0.1); Basophils % 0.5 %; Eosinophils # 0.3 10^3/uL (0.0-0.8); Eosinophils % 2.9 %; Hemoglobin 11.9 g/dL (11.5-15.3); Lymphocytes # 3.6 10^3/uL (0.8-4.8); Lymphocytes % 30.9 %; Mean Corpuscular HGB Conc 31.3 g/dL (30.0-36.0); Mean Corpuscular Hemoglobin 26.9 pg (28.0-34.0); Mean Platelet Volume 10.4 fL (7.4-10.4); Monocytes # 0.9 10^3/uL (0.2-0.9); Monocytes % 7.4 %; Neutrophils # 6.76 10^3/uL (1.8-7.7); Nucleated Red Blood Cells % 0 %; Platelet Count 383 10^3/cmm (130-400); Red Blood Count 4.42 10^6/uL (4.1-5.3); Red Cell Distribution Width 13.2 % (12.1-15.1); White Blood Count 11.7 10^3/uL (4.0-10.0)
[2021-06-29] MEDS: lactated ringers 1,000 ML 999 ML IV (20:30)
[2021-06-29 20:35] LABS: Thyroid Stimulating Hormone 1.49 uIU/mL (0.27-4.20)
[2021-06-29 20:46] LABS: Blood Urea Nitrogen 12 mg/dL (6-20); Calcium 8.5 mg/dL (8.5-10.5); Carbon Dioxide 24 mmol/L (22-29); Chloride 103 mmol/L (98-107); Glomerular Filtration Rate 123.9 mL/min (90-130); Glucose 94 mg/dL (65-115); Osmolality Calculated 284 mOsm/kg (285-295); Sodium 137 mmol/L (136-145)
[2021-06-29 21:09] VITALS: BP 123/73; PULSE 87; RESP 18; O2SAT 100
== END 2021-06-29 21:16 | disposition home or self-care (01) ==
PROVIDERS: Emergency Medicine; Emergency Provider Emergency Medicine
DX: N92.6 Irregular menstruation, unspecified (principal)
CPT/HCPCS: 80048; 84443; 84702; 85025; 87210; 96360; 99284

== ENCOUNTER 2021-08-21 16:33 | Emergency (ER) | payer BC, MEDICAID, SELFPAY ==
[2021-08-21 16:54] VITALS: BP 148/87; PULSE 60; RESP 16; TEMP 37; O2SAT 100
[2021-08-21 16:57] VITALS: BP 125/74; PULSE 78; RESP 21; O2SAT 100
--- NOTE | 2021-08-21 17:08 | ED_ITS ---
Documented by User: GURMEET Azul 08/21/21 18:59 HPI - Abdominal Pain General: Chief Complaint: Abdominal Pain Stated Complaint: RUQ abd pain Time Seen by Provider: 08/21/21 17:08 History of Present Illness: HPI narrative: 25-year-old female comes in with right upper quadrant abdominal pain. Patient reports has had episodes on and off for some time now but today's episode has persisted without any improvement throughout the day. Patient denies any vomiting. Patient appears in mild to moderate pain. Patient appears well. Patient denies any vomiting or diarrhea. Patient denies any other medical problems. Review of the record notes patient's has a history of and delivery. Patient is also noticeably obese. Patient reports eating makes the pain worse and has not found anything to relieve the pain. Related Data: Date of Last Menstrual Period: 06/10/20 Review of Systems General: Reports: 10 or more systems reviewed and unremarkable except in HPI and below GI: Reports: abdominal pain PFSH ED PFSH: Medical History No pertinent past medical history neghx: htn,dm,thyroid.dvt/pe PCP: none Surgical History No history of previous surgery Family History Grandmother Diabetes maternal great Breast cancer maternal great, age onset unknown Denies family history of Colon cancer Ovarian cancer Clotting disorder Heart disease Hyperlipidemia Anesthesia complication Bleeding disorder Hypertension Uterine cancer Thyroid condition Stroke Social History Smoking and tobacco status: never smoked Alcohol intake: former Former alcohol use details: prior to Female Reproductive History: Date of last menstrual period: 06/10/20 Physical Exam Const: COMMON NORMALS: no acute distress and patient oriented x3 GENERAL APPEARANCE: cooperative HENMT: COMMON NORMALS: normocephalic HEAD & SCALP: normal to inspection and normocephalic MOUTH: Normal oral and palatal mucosa present THROAT: posterior oropharynx normal Eye: GENERAL EYE: appearance normal, both eyes and all related structures Neck/C-Spine: COMMON NORMALS: full ROM Chest: COMMONS NORMALS: normal inspection of the chest Resp: COMMON NORMALS: normal respiratory effort EFFORT & INSPECTION: Yes able to speak in complete sentences Cardio: COMMON NORMALS: regular rate and regular rhythm RATE: regular rate RHYTHM: regular rhythm GI: COMMON NORMALS: Soft to palpation PALPATION: Yes Soft to palpation and Yes Tenderness to palpation present (GI) Details: RUQ : COMMON NORMALS: Yes no CVA tenderness BLADDER/KIDNEY EXAM: Yes no CVA tenderness Back/Pelvis: COMMON NORMALS: no CVA tenderness and thoracic and lumbar spine normal to inspection Extremity: COMMON NORMALS: normal to inspection Neuro: COMMON NORMALS: patient oriented x3 and moves all extremities Psych: COMMON NORMALS: mental status grossly normal and cooperative Skin: COMMON NORMALS: no rashes or lesions noted GENERAL SKIN EXAM: no rashes or lesions noted Course Vital Signs: Vital signs: Vital Signs Temperature 98.6 F 08/21/21 16:54 Pulse Rate 78 08/21/21 16:57 Respiratory Rate 21 H 08/21/21 16:57 Blood Pressure 125/74 08/21/21 16:57 Pulse Oximetry 100 08/21/21 16:57 MDM - Abdominal Pain MDM Narrative: Medical decision making narrative: Patient comes in today for complaints of recurrent right upper quadrant abdominal pain that was worse than normal today. On exam patient has some right upper quadrant abdominal discomfort on palpation. Bowel sounds are present. Skin was warm and dry. Vital signs were normal. Differential diagnosis includes but not limited to cholecystitis, cholelithiasis, gastritis. Laboratory values were unremarkable except for some mild elevation in leukocytes at 11.2. Liver enzymes were normal. Lipase was normal. Abdominal ultrasound noted gallstones without any signs of cholecystitis or bile duct occlusion. Reviewed exam with patient with recommendations for treatment and follow-up with surgeon for further treatment and evaluation. Patient reported understanding and agreed to plan. Lab Data: Labs: Lab Results 08/21/21 08/21/21 08/21/21 17:27 17:27 17:27 WBC 11.2 10^3/uL H 10 ^3/uL (4.0-10.0) RBC 4.87 10^6/uL 10^6 /uL (4.1-5.3) Hgb 13.2 g/dL g/dL (11.5-15.3) Hct 41.0 % % (37.0-47.0) MCV 84.2 fl fl (81-99) MCH 27.1 pg L pg (28.0-34.0) MCHC 32.2 g/dL g/dL (30.0-36.0) RDW 14.0 % % (12.1-15.1) Plt Count 405 10^3/cmm H 10 ^3/cmm (130-400) MPV 9.9 fL fL (7.4-10.4) Neut % (Auto) 67.3 % % Lymph % (Auto) 23.9 % % Marshall % (Auto) 7.4 % % Eos % (Auto) 0.7 % % Baso % (Auto) 0.4 % % Neut # (Auto) 7.54 10^3/uL 10^3 /uL (1.8-7.7) Lymph # (Auto) 2.7 10^3/uL 10^3/ uL (0.8-4.8) Marshall # (Auto) 0.8 10^3/uL 10^3/ uL (0.2-0.9) Eos # (Auto) 0.1 10^3/uL 10^3/ uL (0.0-0.8) Baso # (Auto) 0.0 10^3/uL 10^3/ uL (0.0-0.1) Nucleated RBC % (a uto) 0 % % Nucleated RBCs # 0.0 /100WBC /100W BC Sodium 142 mmol/L mmol/L (136-145) Potassium 4.4 mmol/L mmol/L (3.5-5.1) Chloride 105 mmol/L mmol/L (98-107) Carbon Dioxide 25 mmol/L mmol/L (22-29) Anion Gap 16.4 (5-19) BUN 8 mg/dL mg/dL (6-20) Creatinine 0.7 mg/dL mg/dL (0.5-0.9) GFR Calculation 103.7 mL/min mL/m in (90-130) Glucose 93 mg/dL mg/dL (65-115) Calculated Osmolal ity 292 mOsm/kg mOsm/ kg (285-295) Calcium 8.8 mg/dL mg/dL (8.5-10.5) Total Bilirubin 0.3 mg/dL mg/dL (0.15-1.2) AST 11 U/L U/L (0-32) ALT 10 U/L U/L (0-33) Alkaline Phosphata se 85 IU/L IU/L (35-105) Total Protein 8.4 g/dL g/dL (6.6-8.7) Albumin 4.5 g/dL g/dL (3.5-5.2) Globulin 3.9 g/dL g/dL (1.3-4.6) Lipase 21 U/L U/L (13-60) HCG, Qual Negative (Negative) Urine Color Urine Appearance Urine pH Ur Specific Gravit y Urine Protein Urine Glucose (UA) Urine Ketones Urine Blood Urine Nitrate Urine Bilirubin Urine Urobilinogen Ur Leukocyte [place] ase 08/21/21 18:20 WBC RBC Hgb Hct MCV MCH MCHC RDW Plt Count MPV Neut % (Auto) Lymph % (Auto) Marshall % (Auto) Eos % (Auto) Baso % (Auto) Neut # (Auto) Lymph # (Auto) Marshall # (Auto) Eos # (Auto) Baso # (Auto) Nucleated RBC % (a uto) Nucleated RBCs # Sodium Potassium Chloride Carbon Dioxide Anion Gap BUN Creatinine GFR Calculation Glucose Calculated Osmolal ity Calcium Total Bilirubin AST ALT Alkaline Phosphata se Total Protein Albumin Globulin Lipase HCG, Qual Urine Color Yellow (Yellow) Urine Appearance Clear (CLEAR) Urine pH 5 (5-7) Ur Specific Gravit y 1.020 (1.005-1.030) Urine Protein Neg (Negative) Urine Glucose (UA) Norm (Normal) Urine Ketones Negative (Negative) Urine Blood Neg (Negative) Urine Nitrate Negative (Negative) Urine Bilirubin Neg (Negative) Urine Urobilinogen Norm mg/dL mg/dL (Negative) Ur Leukocyte [place] ase Negative (Negative) Discharge Plan Discharge Patient Disposition: Home Clinical Impression: Cholelithiases Qualifiers: Cholelithiasis location: gallbladder Cholecystitis presence: without cholecystitis Biliary obstruction: without biliary obstruction Qualified Code(s): K80.20 - Calculus of gallbladder without cholecystitis without obstruction Condition: Stable Prescriptions: New dicyclomine 20 mg tablet 20 mg PO TID Qty: 30 RF: 0 No Action prenat.vits,stacy,[id number] Tablet 1 tab PO DAILY RF: 0 ferrous sulfate 325 mg (65 mg iron) tablet 325 mg PO BID 30 Days Qty: 60 RF: 3 albuterol sulfate 90 mcg/actuation HFA aerosol inhaler 2 inh INHALATION Q6H PRN (Reason: shortness of breath or wheezing) Qty: 8 RF: 0 Medrol (Douglas) 4 mg tablets,dose pack See Rx Instructions .ROUTE .COMPLEX Qty: 21 RF: 0 ondansetron 4 mg tablet,disintegrating 4 mg PO Q8H PRN (Reason: nausea and vomiting) Qty: 14 RF: 0 Colace 100 mg capsule 100 mg PO BID Qty: 60 RF: 0 acetaminophen 325 mg capsule 325 mg PO Q4H PRN (Reason: fever or pain) Qty: 60 RF: 0 Discharge Orders: Discharge ED (Routine); Ordered 08/21/21 Ordered By: Tom Owens Discharge Diet: Advance as tolerated Discharge Activity: Increase activity as tolerated Patient Instructions: Gallstones (ED) Activity Restrictions/Additional Instructions: Home and rest. Drink plenty of water. Avoid foods high in fats as this may aggravate gallbladder pain. Follow-up with primary care or surgeon of your choice for further evaluation and treatment. Return to the ER for high fever greater than 100.4, uncontrolled right upper quadrant abdominal pain, persistent vomiting, blood in vomit or stool. Coding Level of Care Code ED Computer Systems Security Administrator for Chg Fwd Exam Comprehensive Documented by User: Iftikhar Ramos DO 08/21/21 20:00 HPI - Abdominal Pain General: Chief Complaint: Abdominal Pain Stated Complaint: RUQ abd pain Time Seen by Provider: 08/21/21 17:08 PFS ED PFSH: Medical History No pertinent past medical history neghx: htn,dm,thyroid.dvt/pe PCP: none Surgical History No history of previous surgery Family History Grandmother Diabetes maternal great Breast cancer maternal great, age onset unknown Denies family history of Colon cancer Ovarian cancer Clotting disorder Heart disease Hyperlipidemia Anesthesia complication Bleeding disorder Hypertension Uterine cancer Thyroid condition Stroke Social History Smoking and tobacco status: never smoked Alcohol intake: former Former alcohol use details: prior to Course Vital Signs: Vital signs: Vital Signs Temperature 98.6 F 08/21/21 16:54 Pulse Rate 78 08/21/21 16:57 Respiratory Rate 21 H 08/21/21 16:57 Blood Pressure 125/74 08/21/21 16:57 Pulse Oximetry 100 08/21/21 16:57 MDM - Abdominal Pain MDM Narrative: Medical decision making narrative: This patient was originally seen by GURMEET Hadadd. I agree with his history, evaluation, and treatment. Lab Data: Labs: Lab Results 08/21/21 08/21/21 08/21/21 17:27 17:27 17:27 WBC 11.2 10^3/uL H 10 ^3/uL (4.0-10.0) RBC 4.87 10^6/uL 10^6 /uL (4.1-5.3) Hgb 13.2 g/dL g/dL (11.5-15.3) Hct 41.0 % % (37.0-47.0) MCV 84.2 fl fl (81-99) MCH 27.1 pg L pg (28.0-34.0) MCHC 32.2 g/dL g/dL (30.0-36.0) RDW 14.0 % % (12.1-15.1) Plt Count 405 10^3/cmm H 10 ^3/cmm (130-400) MPV 9.9 fL fL (7.4-10.4) Neut % (Auto) 67.3 % % Lymph % (Auto) 23.9 % % Marshall % (Auto) 7.4 % % Eos % (Auto) 0.7 % % Baso % (Auto) 0.4 % % Neut # (Auto) 7.54 10^3/uL 10^3 /uL (1.8-7.7) Lymph # (Auto) 2.7 10^3/uL 10^3/ uL (0.8-4.8) Marshall # (Auto) 0.8 10^3/uL 10^3/ uL (0.2-0.9) Eos # (Auto) 0.1 10^3/uL 10^3/ uL (0.0-0.8) Baso # (Auto) 0.0 10^3/uL 10^3/ uL (0.0-0.1) Nucleated RBC % (a uto) 0 % % Nucleated RBCs # 0.0 /100WBC /100W BC Sodium 142 mmol/L mmol/L (136-145) Potassium 4.4 mmol/L mmol/L (3.5-5.1) Chloride 105 mmol/L mmol/L (98-107) Carbon Dioxide 25 mmol/L mmol/L (22-29) Anion Gap 16.4 (5-19) BUN 8 mg/dL mg/dL (6-20) Creatinine 0.7 mg/dL mg/dL (0.5-0.9) GFR Calculation 103.7 mL/min mL/m in (90-130) Glucose 93 mg/dL mg/dL (65-115) Calculated Osmolal ity 292 mOsm/kg mOsm/ kg (285-295) Calcium 8.8 mg/dL mg/dL (8.5-10.5) Total Bilirubin 0.3 mg/dL mg/dL (0.15-1.2) AST 11 U/L U/L (0-32) ALT 10 U/L U/L (0-33) Alkaline Phosphata se 85 IU/L IU/L (35-105) Total Protein 8.4 g/dL g/dL (6.6-8.7) Albumin 4.5 g/dL g/dL (3.5-5.2) Globulin 3.9 g/dL g/dL (1.3-4.6) Lipase 21 U/L U/L (13-60) HCG, Qual Negative (Negative) Urine Color Urine Appearance Urine pH Ur Specific Gravit y Urine Protein Urine Glucose (UA) Urine Ketones Urine Blood Urine Nitrate Urine Bilirubin Urine Urobilinogen Ur Leukocyte [place] ase 08/21/21 18:20 WBC RBC Hgb Hct MCV MCH MCHC RDW Plt Count MPV Neut % (Auto) Lymph % (Auto) Marshall % (Auto) Eos % (Auto) Baso % (Auto) Neut # (Auto) Lymph # (Auto) Marshall # (Auto) Eos # (Auto) Baso # (Auto) Nucleated RBC % (a uto) Nucleated RBCs # Sodium Potassium Chloride Carbon Dioxide Anion Gap BUN Creatinine GFR Calculation Glucose Calculated Osmolal ity Calcium Total Bilirubin AST ALT Alkaline Phosphata se Total Protein Albumin Globulin Lipase HCG, Qual Urine Color Yellow (Yellow) Urine Appearance Clear (CLEAR) Urine pH 5 (5-7) Ur Specific Gravit y 1.020 (1.005-1.030) Urine Protein Neg (Negative) Urine Glucose (UA) Norm (Normal) Urine Ketones Negative (Negative) Urine Blood Neg (Negative) Urine Nitrate Negative (Negative) Urine Bilirubin Neg (Negative) Urine Urobilinogen Norm mg/dL mg/dL (Negative) Ur Leukocyte [place] ase Negative (Negative) Discharge Plan Discharge Patient Disposition: Home Clinical Impression: Cholelithiases Qualifiers: Cholelithiasis location: gallbladder Cholecystitis presence: without cholecystitis Biliary obstruction: without biliary obstruction Qualified Code(s): K80.20 - Calculus of gallbladder without cholecystitis without o bstruction Condition: Stable Prescriptions: New dicyclomine 20 mg tablet 20 mg PO TID Qty: 30 RF: 0 No Action prenat.vits,stacy,[id number] Tablet 1 tab PO DAILY RF: 0 ferrous sulfate 325 mg (65 mg iron) tablet 325 mg PO BID 30 Days Qty: 60 RF: 3 albuterol sulfate 90 mcg/actuation HFA aerosol inhaler 2 inh INHALATION Q6H PRN (Reason: shortness of breath or wheezing) Qty: 8 RF: 0 Medrol (Douglas) 4 mg tablets,dose pack See Rx Instructions .ROUTE .COMPLEX Qty: 21 RF: 0 ondansetron 4 mg tablet,disintegrating 4 mg PO Q8H PRN (Reason: nausea and vomiting) Qty: 14 RF: 0 Colace 100 mg capsule 100 mg PO BID Qty: 60 RF: 0 acetaminophen 325 mg capsule 325 mg PO Q4H PRN (Reason: fever or pain) Qty: 60 RF: 0 Discharge Orders: Discharge ED (Routine); Ordered 08/21/21 Ordered By: Tom Owens Discharge Diet: Advance as tolerated Discharge Activity: Increase activity as tolerated Patient Instructions: Gallstones (ED) Activity Restrictions/Additional Instructions: Home and rest. Drink plenty of water. Avoid foods high in fats as this may aggravate gallbladder pain. Follow-up with primary care or surgeon of your choice for further evaluation and treatment. Return to the ER for high fever greater than 100.4, uncontrolled right upper quadrant abdominal pain, persistent vomiting, blood in vomit or stool. Coding Level of Care Code ED Computer Systems Security Administrator for Jeana Fwd Exam Comprehensive
--- NOTE | 2021-08-21 17:19 | USR_ITS ---
PROCEDURE INFORMATION: Exam: US Abdomen, Limited; Right Upper Quadrant Exam date and time: 08/21/2021 5:19 PM Age: 25 years old Clinical indication: Epigastric/right upper quadrant abdominal pain. TECHNIQUE: Imaging protocol: US abdomen. Real time ultrasound with image documentation. Limited exam focused on the right upper quadrant. COMPARISON: US OB follow up [facility] 02/03/2021 8:57 AM FINDINGS: The visualized IVC is grossly normal in caliber. The visualized aorta is grossly normal in caliber. No focal hepatic lesion is seen. No biliary ductal dilatation. The common bile duct measures 4.8 mm. Cholelithiasis with mildly prominent gallbladder wall. The right kidney measures 9.7 cm. No suspicious mass or hydronephrosis. The pancreas is partially obscurred by overlying bowel gas. The visualized pancreas is unremarkable. US/US gall bladder [id number] IMPRESSION: Cholelithiasis with mildly prominent gallbladder wall. If there is continued clinical concern for acute cholecystitis, consider HIDA scan.
[2021-08-21 17:46] LABS: Basophils % 0.4 %; Eosinophils # 0.1 10^3/uL (0.0-0.8); Eosinophils % 0.7 %; Hemoglobin 13.2 g/dL (11.5-15.3); Lymphocytes # 2.7 10^3/uL (0.8-4.8); Lymphocytes % 23.9 %; Mean Corpuscular HGB Conc 32.2 g/dL (30.0-36.0); Mean Corpuscular Hemoglobin 27.1 pg (28.0-34.0); Mean Corpuscular Volume 84.2 fl (81-99); Mean Platelet Volume 9.9 fL (7.4-10.4); Monocytes # 0.8 10^3/uL (0.2-0.9); Monocytes % 7.4 %; Neutrophils # 7.54 10^3/uL (1.8-7.7); Neutrophils % 67.3 %; Nucleated Red Blood Cells % 0 %; Platelet Count 405 10^3/cmm (130-400); Red Blood Count 4.87 10^6/uL (4.1-5.3); White Blood Count 11.2 10^3/uL (4.0-10.0)
[2021-08-21 17:59] LABS: HCG, Serum Qual Negative (Negative)
[2021-08-21 18:09] LABS: Alanine Aminotransferase 10 U/L (0-33); Albumin Level 4.5 g/dL (3.5-5.2); Alkaline Phosphatase 85 IU/L (35-105); Anion Gap 16.4 (5-19); Aspartate Amino Transferase 11 U/L (0-32); Blood Urea Nitrogen 8 mg/dL (6-20); Calcium 8.8 mg/dL (8.5-10.5); Carbon Dioxide 25 mmol/L (22-29); Chloride 105 mmol/L (98-107); Globulin 3.9 g/dL (1.3-4.6); Glomerular Filtration Rate 103.7 mL/min (90-130); Glucose 93 mg/dL (65-115); Lipase 21 U/L (13-60); Osmolality Calculated 292 mOsm/kg (285-295); Potassium 4.4 mmol/L (3.5-5.1); Sodium 142 mmol/L (136-145); Total Bilirubin 0.3 mg/dL (0.15-1.2); Total Protein 8.4 g/dL (6.6-8.7)
[2021-08-21] MEDS: HYDROcodone-acetaminophen 5-325 mg Tablet 1 TAB PO (18:20)
[2021-08-21] MEDS: ondansetron 4 MG Tablet PO (18:21)
[2021-08-21 18:38] LABS: Add Urine Microscopic? NO; Charge for UA Resulting for Rev
[2021-08-21 18:50] LABS: Bilirubin Urine Neg (Negative); Blood Urine Neg (Negative); Glucose Urine UA Norm (Normal); Ketones Urine Negative (Negative); Leukocyte Esterase Urine Negative (Negative); Nitrate Urine Negative (Negative); Protein Urine Neg (Negative); Urine Appearance Clear (CLEAR); Urine Color Yellow (Yellow); Urobilinogen Urine Norm (Negative); pH Urine 5 (5-7)
--- NOTE | 2021-08-24 09:39 | DCPLANNER ---
Addendum entered by Devi Velasquez 09/30/21 16:38: Patient had a follow up appointment scheduled for 08.31.21 with general surgery - patient did not attend appointment. Original Note: account support manager had message to schedule a follow up appointment for patient with general surgery. account support manager emailed patients information to Mikhail at [facility] General Surgery / ENT clinic. Patients information will be printed and reviewed. Clinic will call patient with appointment information.
== END 2021-08-21 19:37 | disposition home or self-care (01) ==
PROVIDERS: Emergency Provider Nurse Practitioner Family
DX: K80.20 Calculus of gallbladder without cholecystitis without obstruction (principal)
CPT/HCPCS: 76705; 80053; 81003; 83690; 84703; 85025; 99283; Q0162